=== PATIENT | male | born 1970 ===

== ENCOUNTER 2019-11-08 07:00 | Day surgery (SDC) | payer OTHER ==
[2019-11-04 12:26] VITALS: BMI 25.0
[2019-11-08] MEDS ORDERED: PROPOFOL 20 ML ONE ×2 (07:51)
[2019-11-08 08:31] VITALS: TEMP 97.7
[2019-11-08 09:04] VITALS: BP 93/49; PULSE 51
== END 2019-11-08 08:55 | disposition home or self-care (01) ==
LOC: FASU-ENDO 07:00
PROVIDERS: ATTEND Internal Medicine Gastroenterology
PROC: 0DJD8ZZ Inspection of Lower Intestinal Tract, Via Natural or Artificial Opening Endoscopic (ICD-10-PCS; principal; 2019-11-08 08:00)
DX: Z12.11 Encounter for screening for malignant neoplasm of colon (principal); Z83.71 Family history of colonic polyps; K57.30 Diverticulosis of large intestine without perforation or abscess without bleeding; K64.8 Other hemorrhoids